=== PATIENT | female | born 1960 | race Caucasian/White ===

== ENCOUNTER 2016-06-12 23:01 | Emergency (ER) | payer OTHER ==
[~2016-06-12] VITALS: Ht 175.3 cm; Wt 73.8 kg
[~2016-06-12 23:01] MED LIST: OXYC-281 PO; ZOLP10TA PO
[2016-06-12 23:04] VITALS: Ht 175.3 cm; Wt 73.8 kg
[2016-06-12] MEDS ORDERED: ONDANSETRON 4 MG INJ IV STA (23:51)
[2016-06-12] MEDS ORDERED: morphine 4 MG/ML VIAL IV STA (23:51)
[2016-06-12] MEDS ORDERED: FAMOTIDINE 20 MG INJ IV STA (23:51)
[2016-06-12] MEDS ORDERED: LIDOCAINE/MYLANTA 40 ML BTL PO STA (23:51)
[2016-06-12] MEDS ORDERED: SOD CHLORIDE 0.9% 1,000 ML IV STA (23:51)
[2016-06-13 00:02] LABS: BASOPHILS % 0.3 % (0.0-2.0); EOSINOPHILS % 0.4 % (0.0-7.0); HEMATOCRIT 42.1 % (37.0-47.0); HEMOGLOBIN 14.5 g/dl (12.0-16.0); LYMPHOCYTES # 1.5 10^3/ul (0.8-2.9); LYMPHOCYTES % 18.6 % (15.0-51.0); MEAN CORPUSCULAR HEMOGLOBIN 33.9 pg (29.0-33.0); MEAN CORPUSCULAR HGB CONC 34.4 g/dl (32.0-37.0); MEAN CORPUSCULAR VOLUME 98.6 fl (82.0-101.0); MEAN PLATELET VOLUME 7.9 fl (7.4-10.4); MONOCYTE # 0.5 10^3/ul (0.3-0.9); MONOCYTES % 5.8 % (0.0-11.0); NEUTROPHIL # 6.2 10^3/ul (1.6-7.5); NEUTROPHILS % 74.9 % (39.0-77.0); PLATELET COUNT 205 10^3/UL (140-440); RED BLOOD COUNT 4.27 10^6/ul (4.20-5.40); RED CELL DISTRIBUTION WIDTH 17.5 % (11.5-14.5); UNCORRECTED WBC 8.2 10^3/ul (4.8-10.8); WHITE BLOOD COUNT 8.2 10^3/ul (4.8-10.8)
[2016-06-13 00:11] LABS: ALBUMIN 5.1 g/dl (3.3-4.9)
[2016-06-13 00:14] LABS: ALBUMIN/GLOBULIN RATIO 1.3; BILIRUBIN,INDIRECT 0.6 mg/dl (0-1.1); BILIRUBIN,TOTAL 0.6 mg/dl (0.2-1.3); CREATININE 0.73 mg/dl (0.44-1.00)
[2016-06-13 00:15] LABS: CALCIUM 9.8 mg/dl (8.4-10.2)
[2016-06-13 00:31] LABS: ADD UMIC YES; URINE BILIRUBIN (Dip) 2+ (NEGATIVE); URINE BLOOD (Dip) 3+ (NEGATIVE); URINE COLOR YELLOW (YELLOW); URINE GLUCOSE (Dip) NEGATIVE (NEGATIVE); URINE KETONES (Dip) 3+ (NEGATIVE); URINE LEUKOCYTE ESTERASE (Dip) NEGATIVE (NEGATIVE); URINE NITRITE (Dip) NEGATIVE (NEGATIVE); URINE TOTAL PROTEIN (Dip) 1+ (NEGATIVE); URINE UROBILINOGEN (Dip) 1.0 E.U./dL (0.1-1.0)
[2016-06-13] MEDS ORDERED: HYDROmorphONE 1 MG/ML SYG IV ONE (00:32)
[2016-06-13] MEDS ORDERED: ONDANSETRON 4 MG INJ IV ONE (00:32)
[2016-06-13 00:42] LABS: CONDITION 1; LH ANALYZER COMMENTS 1
[2016-06-13] MEDS ORDERED: IPRATROPIUM (NEB) 0.5 MG/2.5 ML AMP NEB STA (01:09)
[2016-06-13] MEDS ORDERED: ALBUTEROL 0.5% (NEB) 2.5 MG/0.5 ML AMP NEB STA (01:09)
[2016-06-13 01:21] LABS: ICTOTEST NEGATIVE (NEGATIVE)
[2016-06-13 01:22] LABS: BACTERIA,URINE MODERATE; MUCUS,URINE MODERATE; SQUAMOUS EPITHELIAL CELL,UR FEW
[2016-06-13] MEDS ORDERED: ONDA4TAB14 PO (02:28)
[2016-06-13] MEDS ORDERED: RANI150T9 PO (02:28)
[2016-06-13] MEDS ORDERED: HYDR-902 PO (02:28)
[2016-06-13 02:30] VITALS: BP 132/87; PULSE 74; RESP 16; TEMP 98.5
--- NOTE | 2016-06-13 02:41 | ERD ---
ER Documentation Chief Complaint Date/Time DATE: 06/13/16 TIME: 02:32 Chief Complaint n/v and sciatic pain HPI This is a 56-year-old female who comes in with complaints of sciatic pain and gastritis reactivation. Pain in the epigastric region is mild to moderate in intensity. No other current complaints. No nausea or bites ROS All systems reviewed and are negative except as per history of present illness. Medications Home Meds Active Scripts Ondansetron (Ondansetron Odt) 4 Mg Tab.rapdis, 4 MG PO Q6H Y for NAUSEA AND/OR VOMITING, #10 TAB Prov:DARIO PIMENTEL. 06/13/16 Ranitidine Hcl* (Zantac*) 150 Mg Tablet, 150 MG PO BID Y for EPIGASTRIC PAIN, # 30 TAB Prov:DARIO PIMENTEL. 06/13/16 Hydrocodone/Acetaminophen ([place] 10-325 Tablet) 1 Each Tablet, 1 TAB PO Q6H Y for PAIN, #20 TAB Prov:DARIO PIMENTEL. 06/13/16 Oxycodone Hcl-Acetaminophen* (Percocet*) 5-325 Mg Tablet, 1 TAB PO Q4H Y for neg for 30 Days, TAB Prov:KARSTEN YOUNG MD 02/24/15 Reported Medications Zolpidem Tartrate* (Ambien*) 10 Mg Tablet, 10 MG PO HS Y for INSOMNIA, TAB 02/22/15 Allergies Allergies: Coded Allergies: No Known Allergies (Verified Allergy, Unknown, 02/22/15) PMhx/Soc History of Surgery: Yes (KNEE SX) Anesthesia Reaction: No Hx Neurological Disorder: No Hx Respiratory Disorders: No Hx Cardiac Disorders: No Hx Psychiatric Problems: No Hx Miscellaneous Medical Probl: Yes (GASTRITIS) Hx Alcohol Use: Yes Hx Substance Use: No Hx Tobacco Use: No Smoking Status: Unknown if ever smoked Physical Exam Vitals Vital Signs Date Time Temp Pulse Resp B/P Pulse Ox O2 Delivery O2 Flow Rate FiO2 06/13/16 01:27 71 16 96 21 06/12/16 23:04 98.3 85 18 136/89 98 Physical Exam Const: [] Head: Atraumatic Eyes: Normal Conjunctiva ENT: Normal External Ears, Nose and Mouth. Neck: Full range of motion..~ No meningismus. Resp: Clear to auscultation bilaterally Cardio: Regular rate and rhythm, no murmurs Abd: Soft, non tender, non distended. Normal bowel sounds Skin: No petechiae or rashes Back: No midline or flank tenderness Ext: No cyanosis, or edema Neur: Awake and alert Psych: Normal Mood and Affect Result Diagram: 06/12/168 06/12/16 2348 Results 24 hrs Laboratory Tests Test 06/12/16 23:48 Alanine Aminotransferase (ALT/SGPT) 53IU/L Albumin 5.1g/dl Albumin/Globulin Ratio 1.30 Alkaline Phosphatase 118IU/L Anion Gap 25 Aspartate Amino Transf (AST/SGOT) 82IU/L Basophils # 0.010^3/ul Basophils % 0.3% Blood Morphology Comment Blood Urea Nitrogen 18mg/dl Calcium Level 9.8mg/dl Carbon Dioxide Level 31mmol/L Chloride Level 85mmol/L Creatinine 0.73mg/dl Direct Bilirubin 0.00mg/dl Eosinophils # 0.010^3/ul Eosinophils % 0.4% Globulin 3.90g/dl Glucose Level 110mg/dl Hematocrit 42.1% Hemoglobin 14.5g/dl Indirect Bilirubin 0.6mg/dl Lipase 114U/L Lymphocytes # 1.510^3/ul Lymphocytes % 18.6% Mean Corpuscular Hemoglobin 33.9pg Mean Corpuscular Hemoglobin Concent 34.4g/dl Mean Corpuscular Volume 98.6fl Mean Platelet Volume 7.9fl Monocytes # 0.510^3/ul Monocytes % 5.8% Neutrophils # 6.210^3/ul Neutrophils % 74.9% Nucleated Red Blood Cells # 0.010^3/ul Nucleated Red Blood Cells % 0.0/100WBC Platelet Count 92415^3/UL Potassium Level 3.0mmol/L Red Blood Count 4.2710^6/ul Red Cell Distribution Width 17.5% Sodium Level 138mmol/L Total Bilirubin 0.6mg/dl Total Protein 9.0g/dl Urine Bacteria MODERATE Urine Bilirubin 2+ Urine Clarity CLEAR Urine Color YELLOW Urine Glucose NEGATIVE% Urine Hemoglobin 3+ Urine Ictotest NEGATIVE Urine Ketones 3+ Urine Leukocyte Esterase NEGATIVE Urine Microscopic RBC 5-10/HPF Urine Microscopic WBC 0-2/HPF Urine Mucus MODERATE Urine Nitrite NEGATIVE Urine Specific [place] >=1.030 Urine Squamous Epithelial Cells FEW Urine Total Protein 1+ Urine Urobilinogen 1.0 E.U./dL Urine pH 5.5 White Blood Count 8.210^3/ul Current Medications Medications (Trade) Dose Ordered Sig/Elysia Route PRN Reason Start Time Stop Time Status Last Admin Dose Admin Sodium Chloride (NS) 1,000 ml @ 1,000 mls/hr Q1H STAT IV 06/12/16 23:51 06/13/16 00:50 DC 06/13/16 00:07 Morphine Sulfate (morphine) 4 mg ONCE STAT IV 06/12/16 23:51 06/12/16 23:53 DC 06/13/16 00:07 Ondansetron HCl (Zofran Inj) 4 mg ONCE STAT IV 06/12/16 23:51 06/12/16 23:53 DC 06/13/16 00:07 Famotidine (Pepcid Iv) 20 mg ONCE STAT IV 06/12/16 23:51 06/12/16 23:53 DC 06/13/16 00:07 Miscellaneous Medication (Gi Cocktail (2)) 40 ml ONCE STAT PO 06/12/16 23:51 06/12/16 23:53 DC 06/13/16 00:07 Hydromorphone HCl (Dilaudid) 1 mg ONCE ONCE IV 06/13/16 00:32 06/13/16 00:33 DC 06/13/16 01:03 Ondansetron HCl (Zofran Inj) 4 mg ONCE ONCE IV 06/13/16 00:32 06/13/16 00:33 DC 06/13/16 01:03 Albuterol (Proventil 0.5% (Neb)) 5 mg ONCE STAT NEB 06/13/16 01:09 06/13/16 01:10 DC 06/13/16 01:27 Ipratropium [place] (Atrovent 0.02% (Neb)) 0.5 mg ONCE STAT NEB 06/13/16 01:09 06/13/16 01:10 DC 06/13/16 01:27 Procedures/MDM CBC: [no e/o of systemic infection or severe anemia] CMP: [no e/o severe acidosis, alkalosis, renal failure, diabetic ketoacidosis, liver disease] Lipase: [no e/o pancreatitis] PT/INR: [normal coagulation] Urine: [no e/o acute infection or hematuria] Decision making: This is a very pleasant patient comes in with acute gastritis. Patient feels much better. Patient will be discharged home. Follow-up PCP. Return 8 hours abdominal exams. Departure Diagnosis: Primary Impression: Abdominal pain Abdominal location: epigastric Qualified Code: R10.13 - Epigastric pain Condition: Stable Patient Instructions: Abdominal Pain Referrals: MARY KATE RIVAS (PCP) DARIO PIMENTEL Jun 13, 2016 02:41
== END 2016-06-13 02:37 | disposition home or self-care (01) ==
LOC: E/R 23:01
DX: R10.13 Epigastric pain (principal); R11.2 Nausea with vomiting, unspecified
CPT/HCPCS: 36415; 80053; 81001; 83690; 85025; 94664; 96374; 96375; 96376; J1170; J2270; J2405; J7030; Z7502; Z7610; 81003

== ENCOUNTER 2017-12-20 10:13 | Emergency (ER) | END 2017-12-20 11:56 | disposition home or self-care (01) ==